=== PATIENT | male | born 1980 | race Caucasian/White ===

== ENCOUNTER 2019-09-29 01:58 | Outpatient (CLI) | payer MEDICAID, SELFPAY ==
[2019-09-29 11:01] LABS: Calculated LDL 183 mg/dL (<100); Cholesterol 243 mg/dL (<200); HDL Cholesterol 46 mg/dL (40-60); Triglyceride 74 mg/dL (<150)
[2019-09-29 11:54] LABS: Hemoglobin A1C 5.4 % (3.8-5.6)
== END 2019-09-29 02:18 ==
PROVIDERS: PCP Nurse Practitioner; Visit Provider Nurse Practitioner
DX: Z13.1 Encounter for screening for diabetes mellitus (principal); Z13.6 Encounter for screening for cardiovascular disorders
CPT/HCPCS: 36415; 80061; 83036

== ENCOUNTER 2022-05-11 02:55 | Outpatient (CLI) | payer MEDICAID, SELFPAY ==
[2022-05-12 17:10] LABS: Rheumatoid Factor <8.6 IU/mL (<12.0)
[2022-05-13 10:50] LABS: Lyme Ab w Rflx to Lyme Confirm Negative (Negative)
[2022-05-13 14:50] LABS: ANA Interpretation Negative (Negative)
[2022-05-13 15:16] LABS: Myeloperoxidase Ab IgG <0.2 U; Proteinase 3 Ab (PR3) <0.2 U
[2022-05-13 17:02] LABS: HLA-B27 Result Negative
[2022-05-13 17:59] LABS: Angiotensin Converting Enzyme 31 U/L (16 - 85)
[2022-05-14 13:18] LABS: Syphilis IgG w/Reflex Nonreactive (Nonreactive)
== END 2022-05-11 02:56 | disposition home or self-care (01) ==
LOC: LBO 02:55
PROVIDERS: PCP Nurse Practitioner; Visit Provider Optometrist
DX: H20.11 Chronic iridocyclitis, right eye (principal)
CPT/HCPCS: 36415; 82164; 86812; 83516; 86038; 86431; 86618; 86780

== ENCOUNTER 2022-12-07 03:12 | Outpatient (CLI) | payer MEDICAID, SELFPAY ==
[2022-12-07 12:29] LABS: Calculated LDL 211 mg/dL (<100); Cholesterol 310 mg/dL (<200); HDL Cholesterol 48 mg/dL (40-60); Triglyceride 259 mg/dL (<150)
== END 2022-12-07 03:13 | disposition home or self-care (01) ==
LOC: LOS 03:12
PROVIDERS: PCP Nurse Practitioner Family; Visit Provider Nurse Practitioner Family
DX: E78.5 Hyperlipidemia, unspecified (principal)
CPT/HCPCS: 36415; 80061

== ENCOUNTER 2024-04-17 04:46 | Outpatient (CLI) | payer MEDICAID, SELFPAY ==
[2024-04-17 12:32] LABS: Anion Gap 8.1 mmol/L (3-11); BUN 21 mg/dL (7-18); CO2 27.9 mmol/L (21.0-32.0); CREATININE 1.2 mg/dL (0.70-1.30); Calcium 9.1 mg/dL (8.5-10.1); Calculated LDL 142 mg/dL (<100); Chloride 104 mmol/L (98-107); Cholesterol 227 mg/dL (<200); Estimated GFR 76.48 (mL/min/1.73m2); Glucose 103 mg/dL (74-106); HDL Cholesterol 51 mg/dL (40-60); Potassium 4.3 mmol/L (3.5-5.1); Sodium 140 mmol/L (136-145); Triglyceride 171 mg/dL (<150)
[2024-04-17 12:38] LABS: Hemoglobin A1C 5.3 % (<5.7)
== END 2024-04-17 04:47 | disposition home or self-care (01) ==
LOC: LOS 04:46
PROVIDERS: PCP Nurse Practitioner Family; Visit Provider Nurse Practitioner Family
DX: Z00.00 Encounter for general adult medical examination without abnormal findings (principal); L98.9 Disorder of the skin and subcutaneous tissue, unspecified; E78.2 Mixed hyperlipidemia
CPT/HCPCS: 36415; 80048; 80061; 83036

== ENCOUNTER 2025-03-08 04:39 | Outpatient (CLI) | payer MEDICAID, SELFPAY ==
[2025-03-08 12:58] LABS: ALT 39 U/L (16-63); AST 20 U/L (15-37); Albumin 4.3 g/dL (3.4-5.0); Alkaline Phosphatase 90 U/L (46-116); Anion Gap 7.6 mmol/L (3-11); BUN 18 mg/dL (7-18); Bilirubin, Total 0.8 mg/dL (0.2-1.0); CO2 26.4 mmol/L (21.0-32.0); Calcium 8.8 mg/dL (8.5-10.1); Calculated LDL 147 mg/dL (<100); Chloride 104 mmol/L (98-107); Cholesterol 216 mg/dL (<200); Estimated GFR 84.37 (mL/min/1.73m2); Glucose 92 mg/dL (74-106); HDL Cholesterol 57 mg/dL (>or=40); Potassium 4.5 mmol/L (3.5-5.1); Sodium 138 mmol/L (136-145); Total Protein 7.3 g/dL (6.4-8.2); Triglyceride 60 mg/dL (<150)
== END 2025-03-08 04:40 | disposition home or self-care (01) ==
LOC: LOS 04:39
PROVIDERS: PCP Nurse Practitioner Family; Visit Provider Nurse Practitioner Family
DX: Z00.00 Encounter for general adult medical examination without abnormal findings (principal); E78.2 Mixed hyperlipidemia
CPT/HCPCS: 36415; 80053; 80061